=== PATIENT | male | born 1990 | race Caucasian/White ===

== ENCOUNTER 2019-03-15 22:54 | Emergency (ER) | payer SELFPAY ==
--- NOTE | 2019-03-16 00:02 | ED PDOC ---
Arrival/HPI - General Chief Complaint: Chest Pain Time Seen by Provider: 03/15/19 23:00 Historian: Patient - History of Present Illness Narrative History of Present Illness (Text): 03/15/19 23:57 28 year old male, with no significant past medical history, presents to the emergency department complaining of chest pain for 2 days. Patient informs pain is intermittent and not present now. Patient informs of a small lump to the back of his neck. Patient denies any fevers, chills, headache, dizziness, shortness of breath, dyspnea on exertion, cough, diaphoresis, abdominal pain, nausea, vomiting, diarrhea, back pain, neck pain, or any other complaint. 03/16/19 00:49 Time/Duration: < week (2 days) Symptom Onset: Gradual Symptom Course: Unchanged, Intermittent Activities at Onset: Light Context: Home Past Medical History - Provider Review Nursing Documentation Reviewed: Yes - Infectious Disease Hx of Infectious Diseases: None - Cardiac Hx Cardiac Disorders: Yes Other/Comment: varicose veins - Pulmonary Hx Respiratory Disorders: No - Neurological Hx Neurological Disorder: No - HEENT Hx HEENT Disorder: No - Renal Hx Renal Disorder: No - Endocrine/Metabolic Hx Endocrine Disorders: No - Hematological/Oncological Hx Blood Disorders: No - Integumentary Hx Dermatological Disorder: No - Musculoskeletal/Rheumatological Hx Musculoskeletal Disorders: No - Gastrointestinal Hx Gastrointestinal Disorders: No - Genitourinary/Gynecological Hx Genitourinary Disorders: No - Psychiatric Hx Psychophysiologic Disorder: Yes Hx Depression: Yes Hx Substance Use: No - Surgical History Other/Comment: varicose veins - Anesthesia Hx Anesthesia: Yes Hx Anesthesia Reactions: No Hx Malignant Hyperthermia: No Family/Social History - Physician Review Nursing Documentation Reviewed: Yes Family/Social History: No Known Family HX Smoking Status: Never Smoked Hx Alcohol Use: No Hx Substance Use: No Allergies/Home Meds Allergies/Adverse Reactions: Allergies No Known Allergies Allergy (Verified 03/15/19 23:08) Home Medications: Home Meds Medication Instructions Recorded Confirmed Venlafaxine [Effexor XR] 37.5 mg PO DAILY 03/15/19 03/15/19 Review of Systems - Physician Review All systems were reviewed & negative as marked: Yes - Review of Systems Constitutional: absent: Fevers, Night Sweats Respiratory: absent: SOB, Cough Cardiovascular: Chest Pain Musculoskeletal: absent: Back Pain, Neck Pain Neurological: Other (Numbness to left arm and left leg). absent: Headache, Diz ziness Hemo/Lymphatic: Adenopathy (Bump on neck) Physical Exam Vital Signs Reviewed: Yes Vital Signs Temp Pulse Resp BP Pulse Ox 03/15/19 23:05 98.1 F 84 20 139/85 99 Temperature: Afebrile Blood Pressure: Normal Pulse: Regular Respiratory Rate: Normal Appearance: Positive for: Well-Appearing, Non-Toxic, Comfortable Pain Distress: None Mental Status: Positive for: Alert and Oriented X 3 - Systems Exam Head: Present: Atraumatic, Normocephalic Pupils: Present: PERRL Extroacular Muscles: Present: EOMI Conjunctiva: Present: Normal Mouth: Present: Moist Mucous Membranes Neck: Present: Normal Range of Motion Respiratory/Chest: Present: Clear to Auscultation, Good Air Exchange. No: Respiratory Distress, Accessory Muscle Use Cardiovascular: Present: Regular Rate and Rhythm, Normal S1, S2. No: Murmurs Abdomen: No: Tenderness, Distention, Peritoneal Signs Back: Present: Normal Inspection Upper Extremity: Present: Normal Inspection. No: Cyanosis, Edema Lower Extremity: Present: Normal Inspection. No: Edema Neurological: Present: GCS=15, CN II-XII Intact, Speech Normal Skin: Present: Warm, Dry, Normal Color. No: Rashes Lymphatic: Present: Cervical Adenopathy (Nontender lymphnoid to the left posterior neck) Psychiatric: Present: Alert, Oriented x 3, Normal Insight, Normal Concentration Medical Decision Making ED Course and Treatment: 03/16/19 00:05 Impression: 28 year old male presents with chest pain. Plan: -- EKG -- Chest X-ray -- Reassess and disposition Prior Visits: Notes and results from previous visits were reviewed. Progress Notes: 03/16/19 00:49 patient presents with nonspecific left sided chest pain, absent now, no significant clinical suspicion for aortic dissection or PE. 03/16/19 00:50 - RAD Interpretation Narrative RAD Interpretations (Text): 03/16/19 00:49 cxr my read: no focal infiltrate, no ptx, no wide mediastinum Radiology Orders: 03/15/19 23:46 CXR [CHEST TWO VIEWS (PA/LAT)] [RAD] Stat Joint Cutter: ED Physician - Scribe Statement The provider has reviewed the documentation as recorded by the Scribe Peter Shaggy All medical record entries made by the Jean Claudeibe were at my direction and personally dictated by me. I have reviewed the chart and agree that the record accurately reflects my personal performance of the history, physical exam, medical decision making, and the department course for this patient. I have also personally directed, reviewed, and agree with the discharge instructions and disposition. Disposition/Present on Arrival - Present on Arrival Any Indicators Present on Arrival: No History of DVT/PE: No History of Uncontrolled Diabetes: No Urinary Catheter: No History of Decub. Ulcer: No History Surgical Site Infection Following: None - Disposition Have Diagnosis and Disposition been Completed?: Yes Diagnosis: Chest pain, Cervical adenopathy Disposition: HOME/ ROUTINE Disposition Time: 00:51 Patient Plan: Discharge Condition: STABLE Discharge Instructions (ExitCare): Chest Pain (ED) Additional Instructions: you must follow up with a primary care doctor. Referrals: Ericka iLght MD [Medical Doctor] - Follow up with primary [facility] [Outside] - Follow up with primary Forms: [employer] ([place] Citizen)
[2019-03-16 01:12] VITALS: BP 128/71; PULSE 88; RESP 17; TEMP 98; O2SAT 98
--- NOTE | 2019-03-16 09:10 | RAD ---
Date of service: 03/16/2019 HISTORY: chest pain COMPARISON: No prior. TECHNIQUE: Chest PA and lateral views FINDINGS: LUNGS: No active pulmonary disease. PLEURA: No significant pleural effusion identified. No pneumothorax apparent. CARDIOVASCULAR: No aortic atherosclerotic calcification present. Normal cardiac size. No pulmonary vascular congestion. OSSEOUS STRUCTURES: No significant abnormalities. VISUALIZED UPPER ABDOMEN: Normal. OTHER FINDINGS: None. IMPRESSION: No active disease.
--- NOTE | 2019-03-16 11:38 | CARD ---
APPROVED REPORT Date of service: 03/15/2019 EKG Measurement Heart [id number] <Conclusion> Normal sinus rhythm Rightward axis Incomplete right bundle branch block Borderline ECG
== END 2019-03-16 01:11 | disposition home or self-care (01) ==
LOC: ED 22:54
DX: R07.9 Chest pain, unspecified (principal); R59.9 Enlarged lymph nodes, unspecified

== ENCOUNTER 2019-03-24 16:30 | Emergency (ER) | payer MEDICAID ==
[2019-03-24 16:51] VITALS: BP 123/70; PULSE 98; RESP 20; TEMP 98.4; O2SAT 99
[2019-03-24] MEDS ORDERED: Olopatadine 0.1% Opht Sol OD STA (16:51)
--- NOTE | 2019-03-24 16:51 | ED PDOC ---
Arrival/HPI - General Time Seen by Provider: 03/24/19 16:44 Historian: Patient - History of Present Illness Narrative History of Present Illness (Text): 03/24/19 16:44 28 y/o male, no significiant pmh, nkda, c/o rt. eye itching and redness x 2 days with no fall or trauma. Itching, clear discharge, no fever or chills, no change in vision, no night sweat, no diarrhea, no palpitation, no numbness or tingling, no diarrhea, no other medical or psychological complaints. Past Medical History - Provider Review Nursing Documentation Reviewed: Yes - Infectious Disease Hx of Infectious Diseases: None - Cardiac Hx Cardiac Disorders: Yes Other/Comment: varicose veins - Pulmonary Hx Respiratory Disorders: No - Neurological Hx Neurological Disorder: No - HEENT Hx HEENT Disorder: No - Renal Hx Renal Disorder: No - Endocrine/Metabolic Hx Endocrine Disorders: No - Hematological/Oncological Hx Blood Disorders: No - Integumentary Hx Dermatological Disorder: No - Musculoskeletal/Rheumatological Hx Musculoskeletal Disorders: No - Gastrointestinal Hx Gastrointestinal Disorders: No - Genitourinary/Gynecological Hx Genitourinary Disorders: No - Psychiatric Hx Psychophysiologic Disorder: Yes Hx Depression: Yes Hx Substance Use: No - Surgical History Other/Comment: varicose veins - Anesthesia Hx Anesthesia: Yes Hx Anesthesia Reactions: No Hx Malignant Hyperthermia: No Family/Social History - Physician Review Nursing Documentation Reviewed: Yes Family/Social History: Unknown Family HX Smoking Status: Never Smoked Hx Alcohol Use: No Hx Substance Use: No Allergies/Home Meds Allergies/Adverse Reactions: Allergies No Known Allergies Allergy (Verified 03/15/19 23:08) Home Medications: Home Meds Medication Instructions Recorded Confirmed Venlafaxine [Effexor XR] 37.5 mg PO DAILY 03/15/19 03/15/19 Review of Systems - Review of Systems Constitutional: absent: Fatigue, Fevers Eyes: Other (rt. eye itching). absent: Vision Changes ENT: absent: Hearing Changes Respiratory: absent: SOB, Cough Cardiovascular: absent: Chest Pain Gastrointestinal: absent: Abdominal Pain, Diarrhea, Nausea, Vomiting Skin: absent: Rash, Pruritis Neurological: absent: Headache, Dizziness Psychiatric: absent: Anxiety, Depression, Suicidal Ideation Physical Exam Vital Signs Reviewed: Yes Temperature: Afebrile Blood Pressure: Normal Pulse: Regular Respiratory Rate: Normal Appearance: Positive for: Well-Appearing, Non-Toxic, Comfortable Pain Distress: None Mental Status: Positive for: Alert and Oriented X 3 - Systems Exam Head: Present: Atraumatic, Normocephalic Pupils: Present: PERRL Extroacular Muscles: Present: EOMI Conjunctiva: Present: Other (Eyes: rt. eye vision w/o correction 20/20 vs. lt. eye vision w/o correction 20/20 vs. bilateral eye visions w/o correction 20/20, +rt. conjunctivitis with clear tear, no periorbital swelling, rt. eye examined with fluorsein strip show no corneal uptake and negative percy sign with no corneal abrasion/laceration/ulcer, no visible foreign bodies on the bilateral upper and lower eyelids everted. ) Mouth: Present: Moist Mucous Membranes Nose (External): Present: Atraumatic. No: Abrasion, Contusion, Laceration, Lesions, Other Nose (Internal): Present: Normal Inspection, No Active Bleeding. No: Engorged, Edematous, Rhinorrhea, Septal Deviation, Septal Hematoma, Epistaxis Neck: Present: Normal Range of Motion Respiratory/Chest: Present: Clear to Auscultation, Good Air Exchange. No: Respiratory Distress, Accessory Muscle Use Cardiovascular: Present: Regular Rate and Rhythm, Normal S1, S2. No: Murmurs Abdomen: No: Tenderness, Distention, Peritoneal Signs Back: Present: Normal Inspection Upper Extremity: Present: Normal Inspection. No: Cyanosis, Edema Lower Extremity: Present: Normal Inspection. No: Edema Neurological: Present: GCS=15, CN II-XII Intact, Speech Normal Skin: Present: Warm, Dry, Normal Color. No: Rashes Psychiatric: Present: Alert, Oriented x 3, Normal Insight, Normal Concentration Medical Decision Making ED Course and Treatment: 03/24/19 16:54 -antihistamine opthalmic -Discharge home with antihistamine opthalmic, claritin, avoid rubbing or touching the rt. eye, follow up with your own pmd and opthalmologist within 2 days, return to the ER for any new or worsening signs or symptoms. - PA / [employer] TECHNICIAN / Resident Statement MD/DO has reviewed & agrees with the documentation as recorded. Disposition/Present on Arrival - Present on Arrival Any Indicators Present on Arrival: No History of DVT/PE: No History of Uncontrolled Diabetes: No Urinary Catheter: No History of Decub. Ulcer: No History Surgical Site Infection Following: None - Disposition Have Diagnosis and Disposition been Completed?: Yes Diagnosis: Allergic conjunctivitis Disposition: HOME/ ROUTINE Disposition Time: 16:55 Patient Plan: Discharge Condition: GOOD Additional Instructions: -Discharge home with antihistamine opthalmic, claritin, avoid rubbing or touching the rt. eye, follow up with your own pmd and opthalmologist within 2 days, return to the ER for any new or worsening signs or symptoms. Prescriptions: Loratadine [Claritin] 10 mg PO DAILY PRN #7 tab PRN Reason: Other Olopatadine 0.1% Opht [Patanol 5 Ml] 1 drop OP BID #1 bottle Referrals: Petar Kennedy MD [Staff Provider] - Follow up with primary [facility] [place] [Outside] - Follow up with primary Forms: WORK NOTE
== END 2019-03-24 17:11 | disposition home or self-care (01) ==
LOC: ED 16:30
DX: H10.11 Acute atopic conjunctivitis, right eye (principal)